=== PATIENT | female | born 1985 | race Hispanic/Latino ===

== ENCOUNTER 2017-02-16 10:31 | Observation (INO) | payer MEDICAID ==
[2017-02-16 11:29] VITALS: RESP 16; TEMP 98.1; O2SAT 100
[2017-02-16] MEDS ORDERED: Iohexol 240 (50 ml) PO STA (11:42)
[2017-02-16] MEDS ORDERED: Sodium Chloride 0.9% 1,000 ML IV STA (11:43)
[2017-02-16 12:50] LABS: RBC URINE 5 /hpf (0-3); URINE BACTERIA RARE (<OCC); URINE BILIRUBIN NEGATIVE (NEGATIVE); URINE BLOOD NEGATIVE (NEGATIVE); URINE COLOR YELLOW (YELLOW); URINE GLUCOSE (UA) NEG (Normal); URINE KETONE TRACE mg/dL (NEGATIVE); URINE LEUKOCYTE ESTERASE NEG Leu/uL (Negative); URINE PROTEIN 30 mg/dL (NEGATIVE); URINE UROBILINOGEN 0.2-1.0 mg/dL (0.2-1.0); WBC URINE 1 /hpf (0-5)
--- NOTE | 2017-02-16 12:50 | ED PDOC ---
HPI: Abdomen Time Seen by Provider: 02/16/17 11:32 Chief Complaint (Nursing): Abdominal Pain Chief Complaint (Provider): Abdominal Pain History Per: Patient History/Exam Limitations: no limitations Onset/Duration Of Symptoms: Hrs Current Symptoms Are (Timing): Still Present Severity: Mild Location Of Pain/Discomfort: Diffuse Associated Symptoms: Nausea, Vomiting, Diarrhea Exacerbating Factors: None Alleviating Factors: None Additional Complaint(s): Patient is a 32 year old female who presents to ED for evaluation of abdominal pain this morning. Patient reports pain is associated with nausea, vomiting, diarrhea but denies fever. PMD: Denies Past Medical History Reviewed: Historical Data, Nursing Documentation, Vital Signs Vital Signs: Last Vital Signs Temp 98.1 F 02/16/17 11:26 Pulse 87 02/16/17 11:26 Resp 16 02/16/17 11:26 BP 113/72 02/16/17 11:26 Pulse Ox 100 02/16/17 16:15 - Medical History PMH: No Chronic Diseases - Surgical History Surgical History: No Surg Hx - Family History Family History: States: No Known Family Hx - Living Arrangements Living Arrangements: With Family - Home Medications Home Medications: Ambulatory Orders Medication Instructions Recorded Doxylamine/Pyridoxine HCl (B6) 1 each PO QPM PRN #15 tablet. 02/16/17 [Willi Cardoza 10-10 mg Tablet] Vit Calc,Iron,Folic 1 each PO DAILY #30 tablet 02/16/17 [ Vitamins] - Allergies Allergies/Adverse Reactions: Allergies Allergy/AdvReac Type Severity Reaction Status Date / Time No Known Allergies Allergy Verified 02/16/17 11:26 Physical Exam - Reviewed Nursing Documentation Reviewed: Yes Vital Signs Reviewed: Yes - Physical Exam Appears: Positive for: Non-toxic, No Acute Distress Skin: Positive for: Normal Color, Warm Eye Exam: Positive for: Normal appearance Neck: Positive for: Normal, Painless ROM Cardiovascular/Chest: Positive for: Regular Rate, Rhythm. Negative for: Murmur Respiratory: Positive for: Normal Breath Sounds. Negative for: Respiratory Distress Gastrointestinal/Abdominal: Positive for: Tenderness (mild diffuse ). Negative for: Distended, Guarding, Rebound Back: Positive for: Normal Inspection Extremity: Positive for: Normal ROM Neurologic/Psych: Positive for: Alert, Oriented - Laboratory Results Result Diagrams: 02/16/17 12:45 02/16/17 11:46 - ECG O2 Sat by Pulse Oximetry: 100 (RA) Pulse Ox Interpretation: Normal - CT Scan/US Pelvic ultrasound Other Rad Studies (CT/US): Radiology Report Reviewed (No intrauterine gestational sac. 1.8 cm left ovarian/ paraovarian mass, uncertain significance. Please correlate with beta HCG in consideration of possible ectopic gestation. See above discussion.) - Physician Consult Information Physician Contacted: Bradley Savage Outcome Of Conversation: Recommends return to ED on 02/19/17 morning for repeat beta hCG and ultrasound. Medical Decision Making Medical Decision Making: Time: 1140 Initial impression: Abdominal pain Initial plan: -- CT-AB -- CMP -- BETA-HcG -- Lipase -- Urine preg -- CBC -- PT/PTT -- Bentyl, NSF, Zofran -- U/A -- U/S -- ED obs Scribe Attestation: Documented by Sabine Calero acting as a scribe for Carito Amaro MD. Scribe Attestation: All medical record entries made by the Scribe were at my direction and personally dictated by me. I have reviewed the chart and agree that the record accurately reflects my personal performance of the history, physical exam, medical decision making, and the department course for this patient. I have also personally directed, reviewed, and agree with the discharge instructions and disposition. ED OBSERVATION Date of observation admission: 02/16/17 Time of observation admission: 11:42 - Observation admission statement Patient is being placed in observation because:: further imaging and lab work - Goals of Observation Goals of observation are:: results and pain resolution - Progress Note Progress Note: 02/16/17 16:00 Impression: No intrauterine gestational sac, 1.8cm left ovarian/paraovarian mass, uncertain significance. Please correlate with Beta HcG in consideration of possible ectopic gestation 02/16/17 16:29 Urine preg: Positive Beta Hc Patient reports being Disposition - Clinical Impression Clinical Impression: Abdominal pain during in first trimester - Patient ED Disposition Is Patient to be Admitted: No - Disposition Disposition: Routine/Home Disposition Time: 16:15 Condition: STABLE
[2017-02-16 13:05] LABS: BASO % 0.2 % (0.0-2.0); EOS % 0.1 % (0.0-4.0); HEMATOCRIT 42.4 % (34.0-47.0); LYMPH # 0.4 K/uL (1.0-4.3); LYMPH % 6.8 % (20.0-40.0); MEAN CELL VOLUME 88.6 fl (81.0-99.0); MEAN CORPUSCULAR HEMOGLOBIN 30.2 pg (27.0-31.0); MEAN CORPUSCULAR HGB CONC 34.1 g/dL (33.0-37.0); MEAN PLATELET VOLUME 7.5 fl (7.2-11.7); MONO # 0.2 K/uL (0.0-0.8); MONO % 3.3 % (0.0-10.0); NEUT # 4.9 K/uL (1.8-7.0); NEUT % 89.6 % (50.0-75.0); NRBC % 0.1 % (0.0-0.0); PLATELET COUNT 327 K/uL (130-400); RED CELL DISTRIBUTION WIDTH 13.3 % (11.5-14.5); WHITE BLOOD COUNT 5.5 K/uL (4.8-10.8)
[2017-02-16 13:20] LABS: ALB/GLOB RATIO 1.6 (1.0-2.1); ALKALINE PHOSPHATASE 77 U/L (38-126); ALT/SGPT 28 U/L (9-52); AST/SGOT 20 U/L (14-36); BILIRUBIN,TOTAL 0.7 mg/dl (0.2-1.3); BLOOD UREA NITROGEN 10 mg/dl (7-17); CALCIUM 9.4 mg/dL (8.4-10.2); CARBON DIOXIDE 21 mmol/L (22-30); CHLORIDE 105 mmol/L (98-107); GFR AFRICAN-AMERICAN > 60; GLUCOSE,RANDOM 115 mg/dL (65-105); POTASSIUM 4.1 MMOL/L (3.6-5.0); SODIUM 139 mmol/l (132-148); TOTAL PROTEIN 7.6 G/DL (6.3-8.2)
[2017-02-16 14:43] LABS: NEUTROPHIL 87 % (42-75); REACTIVE LYMPHOCYTES 6 % (0-0); TOTAL CELLS COUNTED 100
--- NOTE | 2017-02-16 15:51 | US ---
PROCEDURE: Pelvic ultrasound examination HISTORY: Abd pain, vomiting COMPARISON: Not available TECHNIQUE: Transabdominal and transvaginal FINDINGS: The uterus measures 8.3 x 6.1 x 5.0 cm. There is a small posterior intramural fibroid, 6 x 7 x 8 mm. No other uterine mass is identified. The endometrium measures 14 mm in width. There is no endometrial fluid. There is no intrauterine gestational sac. The right ovary measures 3.2 x 2.6 x 2.0 cm. Normal flow is demonstrated. The left ovary measures 3.4 x 2.4 x 1.9 cm. Normal flow is demonstrated There is a left adnexal mass, possibly ovarian or paraovarian. The distinction is not clear on the images provided. There is no significant peripheral hypervascularity. The mass is heterogeneous in echogenicity. It measures 1.6 x 1.7 x 1.8 cm. If there is an elevated beta HCG than the possibility of an ectopic gestation should be considered. Otherwise, followup in 6-8 weeks with transvaginal ultrasound is suggested. There is trace fluid in the cul-de-sac. Trace left adnexal fluid is noted. IMPRESSION: No intrauterine gestational sac. 1.8 cm left ovarian/ paraovarian mass, uncertain significance. Please correlate with beta HCG in consideration of possible ectopic gestation. See above discussion.
[2017-02-16 16:48] VITALS: BP 120/71; PULSE 78
== END 2017-02-16 16:20 | disposition home or self-care (01) ==
LOC: H.ER 10:31 → H.EROBSV 11:42
PROVIDERS: ADMIT Emergency Medicine; ATTEND Emergency Medicine
DX: O26.891 Other specified pregnancy related conditions, first trimester (principal); Z3A.00 Weeks of gestation of pregnancy not specified; R10.9 Unspecified abdominal pain
CPT/HCPCS: 36415; 76815; 76817; 80053; 81003; 81025; 83690; 84702; 85025; 99282; G0378; J7040

== ENCOUNTER 2017-02-19 08:14 | Emergency (ER) | payer MEDICAID ==
[2017-02-19 08:27] VITALS: BP 107/67; PULSE 83; RESP 16; TEMP 97; O2SAT 100
--- NOTE | 2017-02-19 08:37 | ED PDOC ---
HPI: Female Pain Time Seen by Provider: 02/19/17 08:20 Chief Complaint (Nursing): Female Genitourinary History Per: Patient History/Exam Limitations: no limitations Onset/Duration Of Symptoms: Days (x 2) Additional Complaint(s): Elli Oviedo is a 32 year old female, with a previous medical history of right sided ectopic , who presents to the ED for reevaluation secondary to being seen in the ED 2 days prio and being informed she was with a questionable left sided structure on the ultrasound. Patient is returning for a repeat beta-HCG and ultrasound. She denies any abdominal pain or vaginal bleeding. PMD: none provided Abnormal Vaginal Bleeding: No Past Medical History Reviewed: Historical Data, Nursing Documentation, Vital Signs Vital Signs: Last Vital Signs Temp 97.0 F L 02/19/17 08:25 Pulse 83 02/19/17 08:25 Resp 16 02/19/17 08:25 BP 107/67 02/19/17 08:25 Pulse Ox 100 02/19/17 08:25 - Medical History Other PMH: ectopic - Family History Family History: States: Unknown Family Hx - Home Medications Home Medications: Ambulatory Orders Medication Instructions Recorded Vit Calc,Iron,Folic 1 each PO DAILY #30 tablet 02/16/17 [ Vitamins] - Allergies Allergies/Adverse Reactions: Allergies Allergy/AdvReac Type Severity Reaction Status Date / Time No Known Allergies Allergy Verified 02/16/17 11:26 Review of Systems ROS Statement: Except As Marked, All Systems Reviewed And Found Negative Gastrointestinal: Negative for: Abdominal Pain Genitourinary Female: Negative for: Vaginal Bleeding Physical Exam - Reviewed Nursing Documentation Reviewed: Yes Vital Signs Reviewed: Yes - Physical Exam Appears: Positive for: Well, Non-toxic, No Acute Distress Cardiovascular/Chest: Positive for: Regular Rate, Rhythm Respiratory: Positive for: CNT, Normal Breath Sounds Gastrointestinal/Abdominal: Positive for: Normal Exam, Bowel Sounds, Soft. Negative for: Tenderness Neurologic/Psych: Positive for: Alert, Oriented - Laboratory Results Result Diagrams: 02/19/17 08:49 - ECG O2 Sat by Pulse Oximetry: 100 (RA) Pulse Ox Interpretation: Normal Medical Decision Making Medical Decision Making: Initial Impression: Reevaluation Initial Plan: * blood type and screen * Beta-HCG * labs * US OB transvaginal * reevaluation Evaluated by Dr. Woo Scribe Attestation: Documented by Carito Park, acting as a scribe for Juan Jose Chanel MD. Provider Scribe Attestation: All medical record entries made by the Scribe were at my direction and personally dictated by me. I have reviewed the chart and agree that the record accurately reflects my personal performance of the history, physical exam, medical decision making, and the department course for this patient. I have also personally directed, reviewed, and agree with the discharge instructions and disposition. Disposition - Clinical Impression Clinical Impression: Threatened miscarriage - Patient ED Disposition Is Patient to be Admitted: No - Disposition [facility] Disposition: Routine/Home Disposition Time: 13:08 Condition: FAIR Instructions: Threatened Miscarriage (ED)
[2017-02-19 08:57] LABS: EOS # 0.1 K/uL (0.0-0.7); LYMPH # 1.3 K/uL (1.0-4.3); LYMPH % 41.3 % (20.0-40.0); MEAN CELL VOLUME 89.3 fl (81.0-99.0); MEAN CORPUSCULAR HGB CONC 33.6 g/dL (33.0-37.0); MEAN PLATELET VOLUME 7.1 fl (7.2-11.7); MONO # 0.3 K/uL (0.0-0.8); MONO % 10.7 % (0.0-10.0); NEUT # 1.4 K/uL (1.8-7.0); NRBC % 0.1 % (0.0-0.0); WHITE BLOOD COUNT 3.3 K/uL (4.8-10.8)
--- NOTE | 2017-02-19 12:54 | US ---
HISTORY: Ectopic suspected. Beta HCG results: 3.9. COMPARISON: 02/16/2017 TECHNIQUE: Transvaginal only. Real -time technique with 2D, duplex and color Doppler FINDINGS: UTERUS: Measures 6.5 x 4.58.2 cm. Normal in size and appearance. Location of fibroid(s) and size: Posterior measuring 8 mm. ENDOMETRIUM: Gestational sac again identified measuring 0.47 cm. Gestational sac remains out of range for calculation of a reliable gestational age. pole identified measuring 1.2 mm. pole measurement range is outside of range for calculation of a reliable gestational age. CERVIX: No cervical abnormality identified. Closed cervix measures 4.55 cm. RIGHT OVARY: Measures 1.9 x 3.4 cm. No solid mass. Normal flow. Simple cyst 1.1 x 1.3 cm. LEFT OVARY: Measures 3.5 x 2.6 cm. No solid mass. Normal flow. Simple cyst 9 mm. Adjacent masslike structure 1.8 x 1.9 cm. Finding identified previously. No appreciable flow in the mass. FREE FLUID: No significant free fluid noted. OTHER FINDINGS: None. IMPRESSION: Early gestational sac likely small gestational pole. Yolk sac not identified. Persistent left adnexal mass unchanged compared to the prior study. Additional benign and/or incidental findings described above.
--- NOTE | 2017-02-19 13:29 | CP.PCM.CON ---
History of Present Illness - History of Present Illness History of Present Illness: Pt is a 32 yo LMP 01/13/17 @5.2wks presented to ED initially on 02/16 with c /o n/v, diarrhea and abdominal pain associated with diarrhea. She denies vaginal bleeding or abdominal pain since that day. She denies cramping or pelvic pain. Her ob hx is sig for ectopic preg in right tube treated with salpingostomy in 2008. Pt states since that time her pregnancies have been intrauterine. POBHx: 2010; SpAB x3; EAB x1; Ectopic PMHX: denies PSHX: [place] for ectopic preg NKDA SHX: stopped smoking cig with preg; denies etoh or illicit drug use Medic: denies . Review of Systems - Constitutional Constitutional: absent: Chills, Excessive Sweating, Headache, Lethargy - Cardiovascular Cardiovascular: absent: Chest Pain - Respiratory Respiratory: absent: Dyspnea on Exertion - Gastrointestinal Gastrointestinal: absent: Abdominal Pain, Bloating, Cramping, Diarrhea, Vomiting - Genitourinary Genitourinary: absent: Difficulty Urinating - Reproductive: Female Reproductive:Female: Normal Menses - Menstruation Menstruation: absent: Abnormal Vaginal Bleeding Past Patient History - Infectious Disease Hx of Infectious Diseases: None - Past Social History Smoking Status: Never Smoked - PSYCHIATRIC Hx Substance Use: No - SURGICAL HISTORY Other/Comment: ectopic 2008 - ANESTHESIA Hx Anesthesia: No Meds Allergies/Adverse Reactions: Allergies Allergy/AdvReac Type Severity Reaction Status Date / Time No Known Allergies Allergy Verified 02/16/17 11:26 Physical Exam - Constitutional Appears: Well - Head Exam Head Exam: ATRAUMATIC, NORMOCEPHALIC - Respiratory Exam Respiratory Exam: NORMAL BREATHING PATTERN - GI/Abdominal Exam GI & Abdominal Exam: Normal Bowel Sounds, Soft. absent: Distended, Organomegaly , Rebound, Tenderness - Psychiatric Exam Psychiatric exam: Normal Affect, Normal Mood Results - Vital Signs Recent Vital Signs: Last Vital Signs Temp 97.0 F L 02/19/17 08:25 Pulse 83 02/19/17 08:25 Resp 16 02/19/17 08:25 BP 107/67 02/19/17 08:25 Pulse Ox 100 02/19/17 13:08 - Labs Result Diagrams: 02/19/17 08:49 Labs: Laboratory Results - last 24 hr 02/19/17 02/19/17 02/19/17 08:49 08:49 08:49 WBC 3.3 L RBC 4.14 Hgb 12.4 D Hct 37.0 MCV 89.3 MCH 30.0 MCHC 33.6 RDW 13.0 Plt Count 290 MPV 7.1 L Neut % (Auto) 44.0 L Lymph % (Auto) 41.3 H [place] % (Auto) 10.7 H Eos % (Auto) 3.0 Baso % (Auto) 1.0 Neut # 1.4 L Lymph # 1.3 [place] # 0.3 Eos # 0.1 Baso # 0.0 Beta HCG, Quant 2063.90 Blood Type B POSITIVE Antibody Screen Negative BBK History Checked Patient has bt - Imaging and Cardiology CT scan - abdomen Status: Image reviewed by me, Report reviewed by me (spoke with us tech who visualized +intrauterine sac and pole within sac. FHR not visualized.) Assessment & Plan - Assessment and Plan (Free Text) Assessment: Impression 5.2wk IUP with appropriate increase in QHCG and ob us c/w 5.2wk gestation Plan: Pt advised to f/u in [facility] for ob care. Return to ED with onset of pelvic pain or bleeding. Pt advised of ob us findings, visualization of gest sac with pole. Also advised that FHR not detected which may be due to early gestation, but nonviable iup not ruled out..
== END 2017-02-19 13:29 | disposition home or self-care (01) ==
LOC: H.ER 08:14
DX: O20.0 Threatened abortion (principal)

== ENCOUNTER 2017-03-15 12:09 | Emergency (ER) | payer MEDICAID ==
[2017-03-15 12:15] VITALS: BP 108/60; PULSE 76; RESP 19; TEMP 98; O2SAT 100
[2017-03-15 14:05] LABS: BASO % 0.4 % (0.0-2.0); EOS # 0.1 K/uL (0.0-0.7); EOS % 1.2 % (0.0-4.0); HEMATOCRIT 35.5 % (34.0-47.0); LYMPH # 1.5 K/uL (1.0-4.3); LYMPH % 27.6 % (20.0-40.0); MEAN CELL VOLUME 87.7 fl (81.0-99.0); MEAN CORPUSCULAR HEMOGLOBIN 30.6 pg (27.0-31.0); MEAN CORPUSCULAR HGB CONC 34.8 g/dL (33.0-37.0); MEAN PLATELET VOLUME 7.5 fl (7.2-11.7); MONO # 0.4 K/uL (0.0-0.8); MONO % 6.7 % (0.0-10.0); NEUT # 3.5 K/uL (1.8-7.0); NEUT % 64.1 % (50.0-75.0); NRBC % 0.1 % (0.0-0.0); RED CELL DISTRIBUTION WIDTH 13.4 % (11.5-14.5); WHITE BLOOD COUNT 5.5 K/uL (4.8-10.8)
[2017-03-15 14:11] LABS: ALB/GLOB RATIO 1.4 (1.0-2.1); ALKALINE PHOSPHATASE 61 U/L (38-126); ALT/SGPT 29 U/L (9-52); AST/SGOT 24 U/L (14-36); BILIRUBIN,TOTAL 0.2 mg/dl (0.2-1.3); BLOOD UREA NITROGEN 9 mg/dl (7-17); CALCIUM 9.3 mg/dL (8.4-10.2); CARBON DIOXIDE 25 mmol/L (22-30); CHLORIDE 104 mmol/L (98-107); GFR AFRICAN-AMERICAN > 60; GLUCOSE,RANDOM 84 mg/dL (65-105); POTASSIUM 3.9 MMOL/L (3.6-5.0); SODIUM 138 mmol/l (132-148); TOTAL PROTEIN 6.5 G/DL (6.3-8.2)
[2017-03-15 15:07] LABS: RBC URINE 2 /hpf (0-3); URINE BILIRUBIN NEGATIVE (NEGATIVE); URINE BLOOD NEGATIVE (NEGATIVE); URINE COLOR YELLOW (YELLOW); URINE GLUCOSE (UA) NEG (Normal); URINE KETONE NEGATIVE (NEGATIVE); URINE LEUKOCYTE ESTERASE NEG Leu/uL (Negative); URINE PROTEIN NEGATIVE (NEGATIVE); URINE UROBILINOGEN 0.2-1.0 mg/dL (0.2-1.0); WBC URINE < 1 /hpf (0-5)
--- NOTE | 2017-03-15 15:39 | ED PDOC ---
HPI: Abdomen Chief Complaint (Provider): vaginal bleeding. History Per: Patient History/Exam Limitations: no limitations Associated Symptoms: denies: Fever, Chills, Nausea, Vomiting, Diarrhea, Loss Of Appetite, Back Pain, Chest Pain, Constipation, Urinary Symptoms Abnormal Vaginal Bleeding: Yes : 8 Para: 1 Miscarriage: 6 <Cecy Beasley - Last Filed: 03/15/17 15:35> <Zion Han Y - Last Filed: 03/16/17 17:34> Time Seen by Provider: 03/15/17 13:45 Chief Complaint (Nursing): Abdominal Pain Additional Complaint(s): 32yo F in ED for eval of vaginal bleeding/abd pain x 1-2 days. pt dnies fever chills nausea or vomiting. pt stats she only is spotting in panty liner.m (Cecy Beasley) Past Medical History Reviewed: Historical Data, Nursing Documentation, Vital Signs - Medical History PMH: No Chronic Diseases - Family History Family History: States: Unknown Family Hx <Cecy Beasley - Last Filed: 03/15/17 15:35> <Zion Han - Last Filed: 03/16/17 17:34> Vital Signs: Last Vital Signs Temp 98.0 F 03/15/17 12:12 Pulse 76 03/15/17 12:12 Resp 19 03/15/17 12:12 BP 108/60 03/15/17 12:12 Pulse Ox 100 03/15/17 15:54 - Home Medications Home Medications: Ambulatory Orders Medication Instructions Recorded Vit Calc,Iron,Folic 1 each PO DAILY #30 tablet 02/16/17 [ Vitamins] - Allergies Allergies/Adverse Reactions: Allergies Allergy/AdvReac Type Severity Reaction Status Date / Time No Known Allergies Allergy Verified 02/16/17 11:26 Review of Systems ROS Statement: Except As Marked, All Systems Reviewed And Found Negative Gastrointestinal: Positive for: Nausea, Vomiting, Abdominal Pain <Cecy Beasley - Last Filed: 03/15/17 15:35> Physical Exam - Reviewed Nursing Documentation Reviewed: Yes Vital Signs Reviewed: Yes - Physical Exam Appears: Positive for: Well, Non-toxic, No Acute Distress Head Exam: Positive for: ATRAUMATIC, NORMAL INSPECTION, NORMOCEPHALIC Skin: Positive for: Normal Color, Warm, DRY Cardiovascular/Chest: Positive for: Regular Rate, Rhythm Respiratory: Positive for: CNT, Normal Breath Sounds Gastrointestinal/Abdominal: Positive for: Normal Exam, Bowel Sounds, Soft, Tenderness Pelvic Exam: Positive for: External Exam Normal Neurologic/Psych: Positive for: Alert, Oriented <Cecy Beasley - Last Filed: 03/15/17 15:35> - Laboratory Results Result Diagrams: 03/15/17 13:20 03/15/17 13:20 - ECG O2 Sat by Pulse Oximetry: 100 - CT Scan/US US Other Rad Studies (CT/US): Interpreted By Me, Radiology Report Reviewed <Cecy Beasley - Last Filed: 03/15/17 15:35> - Laboratory Results Result Diagrams: 03/15/17 13:20 03/15/17 13:20 <Zion Han - Last Filed: 03/16/17 17:34> Medical Decision Making <Cecy Beasley - Last Filed: 03/15/17 15:35> <Zion Han - Last Filed: 03/16/17 17:34> Medical Decision Making: US: viable noted Pt advised to continue f.u with pmd pt stable in ?ED and advised if with worsened bleeding to return to ED. (Cecy Beasley) Disposition - Patient ED Disposition Is Patient to be Admitted: No Counseled Patient/Family Regarding: Diagnosis, Need For Followup, Rx Given - Disposition Disposition: Routine/Home Disposition Time: 15:53 <Cecy Beasley - Last Filed: 03/15/17 15:35> <Zion Han - Last Filed: 03/16/17 17:34> - Clinical Impression Clinical Impression: Abdominal pain during - Disposition Condition: STABLE Instructions: (ED) Forms: [facility] ED School/Work Excuse
--- NOTE | 2017-03-15 15:45 | US ---
PROCEDURE: First trimester ultrasound. HISTORY: vaginal bleeding COMPARISON: 02/19/2017. TECHNIQUE: Standard protocol for this study/examination. FINDINGS: LMP: 01/13/2017 Prior examinations from the current : 02/24/2017 and 02/19/2017. TECHNIQUE: Real-time 2D imaging, duplex and color Doppler. FINDINGS: Cardiac activity: Present Rate: 169 BPM Measurements: [place] rump length: 1.83 cm Gestational age based on CRL 8 weeks 2 days Gestational age based on gestational sac measurement 8 weeks 6 days Gestational age derived from LMP: 8 weeks 5 days is LANG based on LMP: 10/20/2017 LANG based on biometry: 10/21/2017 Gestational concordance documented Yolk sac identified Uterus: Unremarkable. No Cervical abnormalities: Negative examination for cervical dilatation or effacement. Cervical length 3.9 cm Subchorionic hemorrhage: None ADNEXA: Right: 1.6 x 2.2 cm. Normal Doppler arterial waveform documented. Left: 2.5 x 3.6 cm. Normal Doppler arterial waveform documented Fluid in the cul-de-sac: IMPRESSION: Eight weeks 4 days live intrauterine gestation.
== END 2017-03-15 16:22 | disposition home or self-care (01) ==
LOC: H.ER 12:09
DX: O20.9 Hemorrhage in early pregnancy, unspecified (principal)

== ENCOUNTER 2017-04-14 10:17 | Emergency (ER) | payer MEDICAID ==
[2017-04-14 10:23] VITALS: RESP 18
--- NOTE | 2017-04-14 10:57 | ED PDOC ---
HPI: Female Pain Time Seen by Provider: 04/14/17 10:30 Chief Complaint (Nursing): Female Genitourinary Chief Complaint (Provider): Vaginal bleeding History Per: Patient Additional Complaint(s): Pt is a 32 yo female, no PMH, presents to ED with complaints of vaginal bleeding. states she is 13 weeks , started spotting last night, denies any pain. , history of 1 ectopic and 5 spontaneous Ab/s 1 elective Past Medical History Reviewed: Nursing Documentation, Vital Signs Vital Signs: Last Vital Signs Temp 97.7 F 04/14/17 10:22 Pulse 70 04/14/17 10:22 Resp 18 04/14/17 10:22 BP 111/65 04/14/17 10:22 Pulse Ox 99 04/14/17 10:22 - Medical History PMH: No Chronic Diseases - Surgical History Surgical History: No Surg Hx - Family History Family History: States: Unknown Family Hx - Living Arrangements Living Arrangements: With Family - Social History Current smoker - smoking cessation education provided: No Alcohol: None Drugs: Denies - Home Medications Home Medications: Ambulatory Orders Medication Instructions Recorded Vit Calc,Iron,Folic 1 each PO DAILY #30 tablet 02/16/17 [ Vitamins] - Allergies Allergies/Adverse Reactions: Allergies Allergy/AdvReac Type Severity Reaction Status Date / Time No Known Allergies Allergy Verified 04/14/17 10:29 Review of Systems ROS Statement: Except As Marked, All Systems Reviewed And Found Negative Genitourinary Female: Positive for: Vaginal Bleeding Physical Exam - Reviewed Nursing Documentation Reviewed: Yes Vital Signs Reviewed: Yes - Physical Exam Appears: Positive for: Well, Non-toxic, No Acute Distress Head Exam: Positive for: ATRAUMATIC, NORMAL INSPECTION, NORMOCEPHALIC Skin: Positive for: Normal Color, Warm, DRY Eye Exam: Positive for: EOMI, Normal appearance, PERRL ENT: Positive for: Normal ENT Inspection Neck: Positive for: Normal, Painless ROM Cardiovascular/Chest: Positive for: Regular Rate, Rhythm Respiratory: Positive for: CNT, Normal Breath Sounds Gastrointestinal/Abdominal: Positive for: Normal Exam, Bowel Sounds, Soft Pelvic Exam: Positive for: External Exam Normal. Negative for: Active Bleeding Back: Positive for: Normal Inspection Extremity: Positive for: Normal ROM Neurologic/Psych: Positive for: Alert, Oriented - Laboratory Results Result Diagrams: 04/14/17 11:48 - ECG O2 Sat by Pulse Oximetry: 99 Medical Decision Making Medical Decision Making: CBC and UA resulted WNL Beta: 75103 IMPRESSION: Single live intrauterine fetus with mean gestational age of 13 weeks and 1 day. Low-lying placenta, anterior and along the right lateral. Cervix is closed. Pt educated on results and demonstrated full understanding Advised to OB, return to ED with any concerns Disposition - Clinical Impression Clinical Impression: Vaginal bleeding in - Patient ED Disposition Is Patient to be Admitted: No - Disposition Disposition: Routine/Home Disposition Time: 15:43 Condition: STABLE Additional Instructions: Follow up with your OB in 2-3 days! Instructions: Threatened Miscarriage (ED) - POA Present On Arrival: None
[2017-04-14 12:03] LABS: BASO # 0.1 K/uL (0.0-0.2); BASO % 0.8 % (0.0-2.0); EOS # 0.1 K/uL (0.0-0.7); EOS % 1.8 % (0.0-4.0); HEMOGLOBIN 12.4 g/dL (12.0-16.0); LYMPH # 1.4 K/uL (1.0-4.3); LYMPH % 20.1 % (20.0-40.0); MEAN CELL VOLUME 87.7 fl (81.0-99.0); MEAN CORPUSCULAR HEMOGLOBIN 30.8 pg (27.0-31.0); MEAN CORPUSCULAR HGB CONC 35.1 g/dL (33.0-37.0); MEAN PLATELET VOLUME 7.2 fl (7.2-11.7); MONO # 0.4 K/uL (0.0-0.8); MONO % 6.3 % (0.0-10.0); NEUT # 4.8 K/uL (1.8-7.0); RBC 4.03 Mil/uL (3.80-5.20); RED CELL DISTRIBUTION WIDTH 13.4 % (11.5-14.5); WHITE BLOOD COUNT 6.8 K/uL (4.8-10.8)
[2017-04-14 12:23] LABS: SQUAMOUS EPITHIAL 3 /hpf (0-5); URINE BACTERIA RARE (<OCC); URINE BILIRUBIN NEGATIVE (NEGATIVE); URINE BLOOD NEGATIVE (NEGATIVE); URINE CLARITY SLIGHTY-CLOUDY (Clear); URINE COLOR YELLOW (YELLOW); URINE GLUCOSE (UA) NEG (Normal); URINE LEUKOCYTE ESTERASE SMALL Leu/uL (Negative); URINE NITRATE NEGATIVE (NEGATIVE); URINE PROTEIN NEGATIVE (NEGATIVE); URINE UROBILINOGEN 0.2-1.0 mg/dL (0.2-1.0)
--- NOTE | 2017-04-14 14:35 | US ---
PROCEDURE: OB Pelvic Ultrasound HISTORY: Pain and bleeding COMPARISON: None available. FINDINGS: UTERUS: Gestational sac: Single intrauterine gestation. Heart rate: 149 bpm. BPD: 2.10 cm corresponding to 13 weeks and 3 days of gestational age. HC: 7.56 cm corresponding to 13 weeks and 1 day of gestational age. AC: 6.25 cm corresponding to 13 weeks and 0 days of gestational age. FL: 0.95 cm corresponding to 12 weeks and 6 days of gestational age. age (Ultrasound estimated): 13 weeks and 1 day [place]-gestational hemorrhage: None. Date of delivery (Ultrasound estimated) : 10/19/2017 Placenta is anterior an along the right lateral wall low-lying reaching the right lateral margin of the cervix. CERVIX: Long and closed. No cervical abnormality seen. RIGHT OVARY: Measures 2.8 x 0.9 x 2.7 cm. No mass lesion. Normal flow. LEFT OVARY: Measures 2.6 x 2.2 x 2.9 cm. No solid mass. Normal flow. There is a 1.1 x 0.9 x 1.0 cm cyst. FREE FLUID: None. OTHER FINDINGS: None. IMPRESSION: Single live intrauterine fetus with mean gestational age of 13 weeks and 1 day. Low-lying placenta, anterior and along the right lateral. Cervix is closed.
[2017-04-14 15:26] VITALS: BP 120/78; PULSE 78; TEMP 98
[2017-04-14 15:44] VITALS: O2SAT 99
== END 2017-04-14 15:26 | disposition home or self-care (01) ==
LOC: H.ER 10:17
DX: O20.9 Hemorrhage in early pregnancy, unspecified (principal); Z3A.13 13 weeks gestation of pregnancy

== ENCOUNTER 2017-05-16 16:01 | Emergency (ER) | payer OTHER ==
[2017-05-16 16:08] VITALS: TEMP 98.4; O2SAT 100
[2017-05-16] MEDS ORDERED: Sodium Chloride 0.9% 1,000 ML IV STA (16:20)
[2017-05-16 16:48] LABS: BASO # 0.1 K/uL (0.0-0.2); BASO % 0.6 % (0.0-2.0); EOS # 0.1 K/uL (0.0-0.7); EOS % 1.2 % (0.0-4.0); HEMOGLOBIN 12.1 g/dL (12.0-16.0); LYMPH # 1.4 K/uL (1.0-4.3); LYMPH % 15.7 % (20.0-40.0); MEAN CELL VOLUME 88.4 fl (81.0-99.0); MEAN CORPUSCULAR HEMOGLOBIN 31.1 pg (27.0-31.0); MEAN CORPUSCULAR HGB CONC 35.2 g/dL (33.0-37.0); MEAN PLATELET VOLUME 7.3 fl (7.2-11.7); MONO # 0.6 K/uL (0.0-0.8); NEUT # 6.6 K/uL (1.8-7.0); NEUT % 75.5 % (50.0-75.0); NRBC % 0.1 % (0.0-0.0); RBC 3.89 Mil/uL (3.80-5.20); RED CELL DISTRIBUTION WIDTH 13.4 % (11.5-14.5); WHITE BLOOD COUNT 8.8 K/uL (4.8-10.8)
[2017-05-16 16:54] LABS: SQUAMOUS EPITHIAL < 1 /hpf (0-5); URINE BACTERIA RARE (<OCC); URINE BILIRUBIN NEGATIVE (NEGATIVE); URINE BLOOD NEGATIVE (NEGATIVE); URINE CLARITY SLIGHTY-CLOUDY (Clear); URINE COLOR YELLOW (YELLOW); URINE GLUCOSE (UA) NEG (Normal); URINE LEUKOCYTE ESTERASE NEG Leu/uL (Negative); URINE NITRATE NEGATIVE (NEGATIVE); URINE PROTEIN NEGATIVE (NEGATIVE); URINE UROBILINOGEN 0.2-1.0 mg/dL (0.2-1.0)
[2017-05-16 16:57] LABS: ALB/GLOB RATIO 1.2 (1.0-2.1); ALBUMIN 3.6 g/dL (3.5-5.0); ALT/SGPT 115 U/L (9-52); AST/SGOT 73 U/L (14-36); BLOOD UREA NITROGEN 9 mg/dl (7-17); CALCIUM 9.7 mg/dL (8.4-10.2); GFR AFRICAN-AMERICAN > 60; GFR NON-AFRICAN AMERICAN > 60
--- NOTE | 2017-05-16 17:01 | ED PDOC ---
HPI: Headache Time Seen by Provider: 05/16/17 16:37 Chief Complaint (Nursing): Headache Chief Complaint (Provider): DIAMOND History Per: Patient History/Exam Limitations: no limitations Preceeding Symptoms: None Associated Symptoms: denies: Photophobia, Blurred Vision, Nausea, Vomiting, Extremity Weakness Additional Complaint(s): 32yo F 17 weeks with DIAMOND since her first day of but now made worse in past 2 day unrelieved with rest (which normally works for pt). pt is following up with obgyn in 3 weeks. pt states DIAMOND is not worse DIAMOND of life denies change in gait, denies vision changes or loss denies dysuria freq urination denies CP, SOB or abd pain. - Risk Factors SAH Risk Factors: Nest Degree Relative(s) W/SAH, Polycystic Kidney Disease, Marfan's Syndrome, Mildred-Danlos Syndrome, Neurofibromatos, Type I, Sudden Onset Of Pain , Worst Headache Of Life Past Medical History Reviewed: Historical Data, Nursing Documentation, Vital Signs Vital Signs: Last Vital Signs Temp 98.4 F 05/16/17 16:05 Pulse 81 05/16/17 16:05 Resp 16 05/16/17 16:05 BP 123/73 05/16/17 16:05 Pulse Ox 100 05/16/17 16:05 - Medical History PMH: No Chronic Diseases - Family History Family History: States: Unknown Family Hx - Home Medications Home Medications: Ambulatory Orders Medication Instructions Recorded Vit Calc,Iron,Folic 1 each PO DAILY #30 tablet 02/16/17 [ Vitamins] Acetaminophen [Tylenol 325mg tab] 650 mg PO Q6 #30 tab 05/16/17 - Allergies Allergies/Adverse Reactions: Allergies Allergy/AdvReac Type Severity Reaction Status Date / Time No Known Allergies Allergy Verified 05/16/17 16:05 Review of Systems ROS Statement: Except As Marked, All Systems Reviewed And Found Negative Gastrointestinal: Negative for: Nausea, Vomiting Neurological: Positive for: Headache. Negative for: Weakness, Numbness, Incoordination, Change in Speech, Confusion, Seizures, Altered Mental Status, Dizziness Physical Exam - Reviewed Nursing Documentation Reviewed: Yes Vital Signs Reviewed: Yes - Physical Exam Appears: Positive for: Well, Non-toxic, No Acute Distress Head Exam: Positive for: ATRAUMATIC, NORMAL INSPECTION, NORMOCEPHALIC Skin: Positive for: Normal Color, Warm, DRY Eye Exam: Positive for: EOMI, Normal appearance, PERRL ENT: Positive for: Normal ENT Inspection Neck: Positive for: Normal, Painless ROM Cardiovascular/Chest: Positive for: Regular Rate, Rhythm Respiratory: Positive for: CNT, Normal Breath Sounds Gastrointestinal/Abdominal: Positive for: Normal Exam, Bowel Sounds, Soft Back: Positive for: Normal Inspection Extremity: Positive for: Normal ROM Neurologic/Psych: Positive for: Alert, supervisor commissary production II-XII (intact), Oriented. Negative for: Motor/Sensory Deficits - Laboratory Results Result Diagrams: 05/16/17 16:40 05/16/17 16:40 - ECG O2 Sat by Pulse Oximetry: 100 - Progress ED Course And Treament: will get cbc/cmp/UA r/o preeclampsia. Medical Decision Making Medical Decision Making: pt with fairly unremarkable labs advised to continue to f.u with pmd/obgyn . stable from ER standpoint for d/c Disposition - Clinical Impression Clinical Impression: Headache - Patient ED Disposition Is Patient to be Admitted: No Counseled Patient/Family Regarding: Studies Performed, Diagnosis, Need For Followup, Rx Given - Disposition Disposition: Routine/Home Disposition Time: 17:49 Condition: STABLE Prescriptions: Acetaminophen [Tylenol 325mg tab] 650 mg PO Q6 #30 tab Instructions: Acute Headache (DC), General Headache (ED) Forms: u.sit (Czech)
[2017-05-16 18:19] VITALS: BP 116/75; PULSE 68; RESP 14
== END 2017-05-16 18:17 | disposition home or self-care (01) ==
LOC: H.ER 16:01
DX: R51 Headache (principal); Z33.1 Pregnant state, incidental

== ENCOUNTER 2017-10-04 04:35 | Inpatient (IN) | payer OTHER ==
[2017-10-04 05:17] VITALS: BMI 37.8
[2017-10-04] MEDS ORDERED: Lactated Ringer's 1,000 ML IV SCH (05:30)
[2017-10-04] MEDS: Lactated Ringer's 1,000 ML IV SCH ×2 (05:30→06:30)
[2017-10-04 05:41] LABS: BASO # 0.1 K/uL (0.0-0.2); BASO % 1.2 % (0.0-2.0); EOS # 0.2 K/uL (0.0-0.7); EOS % 1.4 % (0.0-4.0); HEMATOCRIT 36.2 % (34.0-47.0); LYMPH % 17.8 % (20.0-40.0); MEAN CELL VOLUME 89.6 fl (81.0-99.0); MEAN CORPUSCULAR HEMOGLOBIN 30.1 pg (27.0-31.0); MEAN CORPUSCULAR HGB CONC 33.6 g/dL (33.0-37.0); MONO # 0.6 K/uL (0.0-0.8); MONO % 5.7 % (0.0-10.0); NEUT # 8.3 K/uL (1.8-7.0); NEUT % 73.9 % (50.0-75.0); NRBC % 0.2 % (0.0-0.0); RED CELL DISTRIBUTION WIDTH 13.9 % (11.5-14.5); WHITE BLOOD COUNT 11.3 K/uL (4.8-10.8)
[2017-10-04] MEDS ORDERED: Fentanyl/Bupivacaine HCl 250 ML EPI ONE (06:07)
[2017-10-04] MEDS ORDERED: Oxytocin 30 UNITS in Sodium Chloride 0.9% 500 ML IV ONE ×2 (09:48→22:01)
--- NOTE | 2017-10-04 10:03 | OBPN ---
Datetime: 10/04/2017 10:00 IP Progress Impression: Normal progression of labor IP Informed Consent Obtain: Vaginal Delivery IP Procedures: Sterile Vag Exam IP Progress Plan: Continue present management Contraction Comments Provider: q 5 mins FHR - Baseline A Provider: 120 IP Progress Note Comment: Patient has some increased pressure VE=6/80/-1 FOT=192 mod nigel, +accels, no decels TOCO = ctxning q 5 mins A/P 1. Patient now 6cm, ginny q 5 mins. Will start Pitocin for augmentation 2. CEFM and TOCO Vital Signs Provider: Reviewed; Within Normal Limits NICHD Accel Fetus A IP Provider: [id number] NICHD Variability Prov Fetus A: Moderate 6-25bpm Dilatation, Provider: 6 Effacement, Provider: 80 Station, Provider: -1 NICHD Decel Fetus A IP Provider: None Datetime: 10/04/2017 05:15 Pool Provider: Positive Nitrazine Provider: Positive Membranes, Provider: Ruptured Amniotic Fluid Color, Provider: Clear Gestation - Est Wks by US: 37.4 Presentation-Admit: Vertex FHR Category Provider Fetus A: Category I
--- NOTE | 2017-10-04 13:16 | OBPN ---
Datetime: 10/04/2017 13:11 IP Progress Impression: Normal progression of labor IP Informed Consent Obtain: Vaginal Delivery IP Procedures: Sterile Vag Exam IP Progress Plan: Continue present management Contraction Comments Provider: q 5 mins FHR - Baseline A Provider: 125 IP Progress Note Comment: Patient not feeling increased pressure/pain VE=7-8/80/-1 FHR = 125 mod nigel, +accels, no decels TOCO= ctxning q 5 mins A/P 1. Patient progressing slowly, will continue Pitocin, now at 8mu/min 2. CEFM and TOCO 3. Re-evaluate as needed Vital Signs Provider: Reviewed; Within Normal Limits NICHD Accel Fetus A IP Provider: [id number] NICHD Variability Prov Fetus A: Moderate 6-25bpm Dilatation, Provider: 7-8 Effacement, Provider: 80 Station, Provider: -1 NICHD Decel Fetus A IP Provider: None
--- NOTE | 2017-10-04 17:16 | OBPN ---
Datetime: 10/04/2017 16:50 IP Progress Impression: Normal progression of labor IP Informed Consent Obtain: Vaginal Delivery IP Procedures: Sterile Vag Exam IP Progress Plan: Continue present management Contraction Comments Provider: q 3mins FHR - Baseline A Provider: 125 IP Progress Note Comment: Patient feeling increased pain and pressure VE=9/100/+1 FHR= 125 mod nigel, +accels, decels TOCO = ctxning 3 mins, Pitocin @ 14 mu/min A/P 1. Patient progressing well, now 9cm and +1 station 2. CEFM and TOCO 3. RE-evaluate as needed Vital Signs Provider: Reviewed; Within Normal Limits NICHD Accel Fetus A IP Provider: [id number] NICHD Variability Prov Fetus A: Moderate 6-25bpm Dilatation, Provider: 9cm Effacement, Provider: 100 Station, Provider: 1 NICHD Decel Fetus A IP Provider: None
[2017-10-04] MEDS ORDERED: Lidocaine 2% Inj (20ml) ONE (19:22)
[2017-10-04] MEDS ORDERED: Oxycodone/Acetaminophen 5/325 mg Tab PO PRN ×2 (20:43→22:14)
--- NOTE | 2017-10-04 20:49 | OBDS ---
DELIVERY PERSONNEL Delivery Doctor: Aura RoselineReagan SHERIFF MATERNAL INFORMATION Delivery Anesthesia: Epidural Medications in Delivery: Pitocin 30u/500LR Provider Comments: of live female over intact perineum, SMITH and nuchal cord, 6lbs 9oz, /9, followed by shoulders and rest of infant atraumatically, mouth and nose suctioned, cord clamped a nd cut, infant placed in warmer, cord blood obtained, placenta delivered spontaneously, fundus firm, no lacerations, [id number], pt otherwise tolerated procedure LABOR SUMMARY EDC: 10/20/2017 00:00 No. Babies in Womb: 1 Attempted: No Labor Anesthesia: Epidural LABOR INFORMATION Onset of Labor: 10/04/2017 03:00 Group B Beta Strep: Done, Result Unknown Steroids Given: None Reason Steroids Not Administered: Not Applicable MEMBRANES Membranes Rupture Method: Spontaneous Rupture of Membranes: 10/04/2017 05:00 Amniotic Fluid Color: Clear Amniotic Fluid Amount: Moderate Amniotic Fluid Odor: Normal
[2017-10-05 06:15] LABS: HEMATOCRIT 31.7 % (34.0-47.0); MEAN CELL VOLUME 89.7 fl (81.0-99.0); MEAN CORPUSCULAR HGB CONC 33.5 g/dL (33.0-37.0); WHITE BLOOD COUNT 14.3 K/uL (4.8-10.8)
--- NOTE | 2017-10-06 07:25 | OBPPN ---
Datetime: 10/06/2017 06:55 PP Pain Prov: Within normal limits PP Nausea Prov: Denies PP Flatus Prov: Yes PP BM Prov: Yes PP Heart Prov: Normal PP Lungs Prov: Normal PP Abdomen/Uterus Prov: Normal PP Lochia Prov: Normal PP CVA Tenderness Prov: Normal PP Extremities Prov: Normal PP C/S Incision Prov: Not Applicable PP Progress Prov: Normal PP Impression Prov: Normal progression PP Plan Prov: Discharge PP Progress Note Prov: 32 y/o F now on PPD 1. Pt had a on 10/04/17 with NO complicatio ns. Pt reports feeling well. No acute events overnight. Pt tolerating PO, urinating with no difficult ies and ambulating. Lochia is same as menses as per pt. Pt trying to breastfeed and supplementing wit h formula predominantly. Pain is well controlled with medications. Pt reports passing gasses and alre basil had a bowel movement. Pt denies headache, visual disturbances, CP, SOB, N/V or pruritus. PE Gen: Pt resting comfortably on bed, AAOx3, not in acute distress. Lungs: CTA B/L. No W/R/R. CV: S1 S2 present, regular rhythm. Abd: BS+, soft, fundus of uterus firm and bellow umbilicus. Ext: no edema, neg Terri's sign, non-tender calves. NEURO/PSYCH: no grossly focal deficit, preserved affect and mood. A/P: 32 y/o on PPD 1, recovering well from . -Will discharge pt home today. -Encourage . -Continue PNV 1 tab PO daily. -Ibuprofen 600mg PO PRN for moderate/severe pain. -Ambulate with caution, no heavy lifting, nothing per vagina for 6 weeks. -If excessive bleeding, intolerable pain or fever despite medications, go to ER. - F/U with clinic within 4-6 weeks for post- evaluation. -Will administer Pneumococcal vaccine upon discharge. Case discussed with OB court liaison. Brenda PGY-1 OB Hospitalist Addendum: Pt seen and examined by me. Agree w/ above. PPD 2 s/p , doing well, currently breast feeding. Discharge home today. (ES) IP PP Procedures: None Datetime: 10/05/2017 08:03 PP Breasts Prov: Not Done PP Vulva/Perineum Prov: Not Done Vital Signs Provider PP: Reviewed
[2017-10-06] MEDS ORDERED: Pneumococcal 23-Valent Vaccine IM ONE (09:00)
--- NOTE | 2017-10-06 10:44 | OBADHP ---
Datetime: 10/04/2017 16:50 FHR - Baseline A Provider: 125 Contraction Comments Provider: q 3mins Vital Signs Provider: Reviewed; Within Normal Limits NICHD Variability Prov Fetus A: Moderate 6-25bpm NICHD Accel Fetus A IP Provider: [id number] NICHD Decel Fetus A IP Provider: None Dilatation, Provider: 9cm Effacement, Provider: 100 Station, Provider: 1 Datetime: 10/04/2017 05:42 Admit Comment, IP Provider: 32 y/o F at 37.4 weeks GA, LANG 10/20/17 by LMP 01/13/17 and conf ormed by 1st trim US, c/o painful uterine CTX. They began at 3:30 pm yesterday, have been increasing in frequency and intensity progressively, now 10/10 intensity and q3-5 mins. No BV. FM present. Pt re ports LOF upon placed on hospital bed (just now _05:20). Pt denies headache, visual disturbances, CP, SOB, N/V, urinary complaints or pruritus. NKDA Meds: PNV OBHx: 1x , 1x induced Ab, 4x spontaneous Ab, 1 ectopic . [facility] Clinic: [facility] [address] Barraza PN Labs: blood group B pos, anntibody screen neg, HIV neg, RPR neg, Rubella immune, GC/Chlamydia n eg, HBsAg neg. GBS: no results. PMHx: denied PSHx: denied FHx: NC SHx: No tobacco during , alcohol or rec drugs. A/P: 32 y/o F with IUP at 37.4 weeks GA, with SROM, GBS unknown. -Admit to L_D -Initiate Labor protocol -Will re-evaluate as needed. -Consider antibiotics for GBS prophylaxis. Case discussed with Dr Chi, OB newsperson Gutierrez PGY-1. OB attending addendum: Patient seen and examined by me agree with the above assessment and plan. Datetime: 10/04/2017 05:15 Pelvic Type - PN: Adequate Extremities - PN: Normal Abdomen - PN: Normal Back - PN: Normal Lungs - PN: Normal Heart - PN: Normal Thyroid - PN: Normal Neurologic - PN: Normal HEENT - PN: Normal General - PN: Normal Presentation-Admit: Vertex Amniotic Fluid Color, Provider: Clear Membranes, Provider: Ruptured Gestation - Est Wks by US: 37.4 Pool Provider: Positive Nitrazine Provider: Positive IP Hx Assessment: The History has been Reviewed and is Current IP Chief Complaint: Uterine contractions; Suspected ruptured membranes; Maternal discomfort FHR Category Provider Fetus A: Category I DTRs - PN: Normal EGA AdmitDate IP: 37.5 IP Adm Impression: , intrauterine IP Admit Plan: Admit to unit; Initiate labor protocol
--- NOTE | 2017-10-06 10:57 | OBPPN ---
Datetime: 10/05/2017 08:03 PP Progress Note Prov: 32 y/o F now on PPD 1. Pt had a on 10/04/17 with NO complicatio ns. Pt reports feeling well. No acute events overnight. Pt tolerating PO, urinating with no difficult ies and ambulating. Lochia is same as menses as per pt. Pt supplementing with formula predominantly f or now. Pain is well controlled with medications. Pt reports NOT passing gasses but NO bowel movement yet. Pt denies headache, visual disturbances, CP, SOB, N/V or pruritus. PE Gen: Pt resting comfortably on bed, AAOx3, not in acute distress. Lungs: CTA B/L. No W/R/R. CV: S1 S2 present, regular rhythm. Abd: BS+, soft, fundus of uterus firm and bellow umbilicus. Ext: no edema, neg Terri's sign, non-tender calves. NEURO/PSYCH: no grossly focal deficit, preserved affect and mood. A/P: 32 y/o on PPD 1, recovering well from . -Continue medical management. -Encouraged and ambulation. -Will administer Pneumococcal vaccine upon discharge. Case discussed with OB door to door salesperson. Brenda PGY-1 LVH addendum attending: Patient seen and examined by me. Agree with above assessment and plan.
[2017-10-06 16:11] VITALS: BP 117/81; PULSE 77; RESP 18; TEMP 97.8; O2SAT 99
== END 2017-10-06 10:50 | disposition home or self-care (01) | DRG 373 ==
LOC: H.EROB2 04:35 → H.L&D 05:17 → H.OB/GYN 22:37
PROVIDERS: ADMIT Obstetrics & Gynecology; ATTEND Obstetrics & Gynecology
PROC: 10E0XZZ Delivery of Products of Conception, External Approach (ICD-10-PCS; principal; 2017-10-04)
PROC: 4A1HXCZ Monitoring of Products of Conception, Cardiac Rate, External Approach (ICD-10-PCS; 2017-10-04)
DX: O69.81X0 Labor and delivery complicated by cord around neck, without compression, not applicable or unspecified (principal); Z37.0 Single live birth; Z3A.37 37 weeks gestation of pregnancy